=== PATIENT | female | born 1995 | race Caucasian/White ===

== ENCOUNTER 2021-01-11 10:58 | Outpatient (REF) | payer OTHER, SELFPAY ==
--- NOTE | 2021-01-11 11:04 | ECG_ITS ---
Test Reason : chest pain Blood Pressure : / mmHG Vent. Rate : 059 BPM Atrial Rate : 059 BPM P-R Int : 158 ms QRS Dur : 090 ms QT Int : 394 ms P-R-T Axes : 028 008 040 degrees QTc Int : 390 ms Sinus bradycardia with sinus arrhythmia Otherwise normal ECG No previous ECGs available Referred By: Anastasia Moreno Electronically Signed By:LUIS LYNN
[2021-01-11 12:17] LABS: Alanine Aminotransferase 7 U/L (0-31); Albumin Level 4.5 g/dL (3.5-5.0); Alkaline Phosphatase 75 U/L (39-117); Anion Gap 13 (12-20); Aspartate Amino Transferase 11 U/L (5-31); Bilirubin Total 0.6 mg/dL (0.0-1.0); Blood Urea Nitrogen 13 mg/dL (9-16); Calcium 9.7 mg/dL (8.4-10.2); Carbon Dioxide 26 mmol/L (22-29); Chloride 104 mmol/L (96-108); Cholesterol 173 mg/dL; Estimated Glomerular Filt Rate > 60; Glucose Fasting 86 mg/dL (60-99); HDL Cholesterol 49 mg/dL; LDL Cholesterol Calculated 104 mg/dl; Potassium 4.2 mmol/L (3.3-5.1); Sodium 139 mmol/L (135-145); Total Protein 7.1 g/dL (6.5-8.0); Triglycerides 102 mg/dL
[2021-01-15 11:47] LABS: Vitamin D 25-OH, D2 <4 ng/mL; Vitamin D 25-OH, D3 22 ng/mL; Vitamin D 25-OH, Total 22 ng/mL (30-100)
== END 2021-01-11 10:59 | disposition home or self-care (01) ==
LOC: HO.LAB 10:58
PROVIDERS: PCP Internal Medicine; Visit Provider Internal Medicine
DX: R07.9 Chest pain, unspecified (principal); E78.00 Pure hypercholesterolemia, unspecified; E78.5 Hyperlipidemia, unspecified; E55.9 Vitamin D deficiency, unspecified; G43.909 Migraine, unspecified, not intractable, without status migrainosus
CPT/HCPCS: 36415; 80053; 80061; 82306; 93005

== ENCOUNTER 2021-02-21 13:03 | Outpatient (REF) | payer OTHER, SELFPAY ==
[2021-02-22 02:12] LABS: CT PCR NOT DETECTED (Not Detect.); NG PCR NOT DETECTED (Not Detect.)
== END 2021-02-21 13:04 | disposition home or self-care (01) ==
LOC: HO.LAB 13:03
PROVIDERS: PCP Internal Medicine; Visit Provider Advanced Practice Midwife
DX: Z01.419 Encounter for gynecological examination (general) (routine) without abnormal findings (principal); Z11.8 Encounter for screening for other infectious and parasitic diseases; Z11.3 Encounter for screening for infections with a predominantly sexual mode of transmission; G44.209 Tension-type headache, unspecified, not intractable; J45.30 Mild persistent asthma, uncomplicated; E78.00 Pure hypercholesterolemia, unspecified; E55.9 Vitamin D deficiency, unspecified
CPT/HCPCS: 87491; 87591; 88142

== ENCOUNTER 2021-04-06 13:03 | Emergency (ER) | payer OTHER, SELFPAY ==
[2021-04-06 14:13] VITALS: BP 113/65; PULSE 80; RESP 18; TEMP 37; O2SAT 97; BMI 28.9
--- NOTE | 2021-04-06 16:27 | ED_ITS ---
HPI - URI/Sore Throat General Chief Complaint: Upper Respiratory Symptoms Stated Complaint: covid exposure Time Seen by Provider: 04/06/21 16:22 Source: patient Mode of arrival: ambulatory Limitations: no limitations History of Present Illness HPI Narrative: 26-year-old female with history of mild intermittent asthma, seasonal allergies presents to the ER with 2 days of mild dry cough and chest congestion. She has a known exposure to RSV. Her 1-month-old foster daughter is in the pediatric intensive care unit [facility] on high-flow oxygen with known RSV. The patient's grandmother also was diagnosed RSV yesterday. She denies any shortness of breath, dyspnea, chest pain. She describes her symptoms as mild she ?just needs to know she is positive for not. ? MD elicited complaint: cough and nasal congestion Onset (ago): day(s) (2) Consistency: intermittent Severity: mild Description of mucous: clear Able to tolerate fluids by mouth: Yes Exacerbating factors: nothing Relieving factors: nothing Context: sick contacts Associated symptoms: headache and nasal congestion Treatments prior to arrival: none Related Data Home Medications Medication Instructions Recorded Confirmed duloxetine 30 mg capsule,delayed 30 mg PO DAILY 02/21/21 release Previous Rx's Medication Instructions Recorded sumatriptan succinate 25 mg tablet 25 mg PO Q2-4H PRN 30 Days #9 tab 05/05/20 albuterol sulfate 90 mcg/actuation 2 inh INHALATION Q4-6H PRN 30 Days 05/21/20 breath activated powder inhaler #1 ea montelukast 10 mg tablet 10 mg PO BEDTIME 90 Days #90 tab 07/12/20 cholecalciferol (vitamin D3) 50 50 mcg PO DAILY #30 cap 07/19/20 mcg (2,000 unit) capsule meclizine 25 mg tablet 25 mg PO DAILY PRN 30 Days #30 tab 11/07/20 naproxen 500 mg tablet 500 mg PO BID 30 Days #60 tab 11/28/20 Allergies Allergy/AdvReac Type Severity Reaction Status Date / Time No Known Allergies Allergy Verified 02/21/21 14:00 Review of Systems Review of Systems: Constitutional: No Fever, No Chills ENT/Mouth: No sore throat, + Rhinorrhea, No Swallowing Difficulty Cardiovascular: No Chest Pain, No SOB Respiratory: +Cough, No Sputum, No Wheezing, No dyspnea Gastrointestinal: No Nausea, No Vomiting, No Diarrhea, No abdominal Pain Musculoskeletal: No joint pain, No Myalgias Skin: No Skin Lesions, No rash Neuro: No Weakness, No Dizziness, No Headache Psych: + Anxiety/Panic, No Depression Heme/Lymph: No Bruising, No Lymphadenopathy PMFSH Past Medical History Attestation statement: The following information was validated with the patient. Medical History Allergic rhinitis Hypovitaminosis D Incomplete immunization status Mild persistent asthma Pure hypercholesterolemia Tension headache Surgical History No pertinent past surgical history Family History Family History Father Medical history non-contributory Substance use disorder Mother Medical history non-contributory Maternal Grandmother No problems noted. Paternal Grandmother Diabetes Maternal Aunt Diabetes Brother In good health Brother In good health Sister In good health Sister In good health Sister In good health Family/Other FH: mental illness Paternal Uncle Substance use disorder Family/Other Breast cancer Social History Social History Housing: Apartment Alcohol intake: never Patient Tobacco Use Status: Never used Tobacco e-Cigarette/Vaping Use: Never Used Second Hand Smoke Exposure: No Advance Directives: No Advance Directives Information Provided: No Patient : No service: No Current occupational status: employed Gender identity: Female Physical Exam Vital Signs: Vital Signs: Last Vital Signs Temp 98.6 F 04/06/21 14:13 Pulse 80 04/06/21 14:13 Resp 18 04/06/21 14:13 BP 113/65 04/06/21 14:13 Pulse Ox 97 04/06/21 14:13 Body Mass Index 28.9 Appearance: Alert. Oriented X3. No acute distress. Eyes: Pupils equal, round and reactive to light. ENT: Pharynx normal. No tonsillar swelling or exudates. Neck: Normal inspection. Neck supple. CVS: Normal heart rate and rhythm. Pulses normal. Respiratory: No respiratory distress. Breath sounds normal. Skin: Skin warm and dry. Normal skin color. Normal skin turgor. No rashes. Extremities: Normal inspection, normal ROM Neuro: Oriented X 3.Grossly normal, nonfocal. Course Course Course Narrative: 26-year-old female with history of mild asthma presenting with mild URI symptoms in the setting of known RSV exposure. She is nontoxic appearing with normal vital signs. Her lungs are clear without wheezes. Her symptoms are mild. She was swabbed for COVID, flu, RSV. Will call with results. Symptomatic care was discussed and patient is stable for discharge home. She was counseled she is most likely positive for RSV and management was discussed. Critical Care Time Critical Care Time Critical Care Time: No Discharge Plan Discharge Clinical Impression: Viral infection Patient Disposition: Home, Self-Care Instructions: Viral Syndrome (ED) Additional Instructions: You most likely have RSV given your close exposure. We will call you with the results this evening. Rest and stay hydrated. Take over the counter cold and flu medications as needed for your symptpms. Prescriptions: No Action sumatriptan succinate 25 mg tablet 25 mg PO Q2-4H PRN (Reason: migraine headache) 30 Days Qty: 9 RF: 6 albuterol sulfate 90 mcg/actuation aerosol powdr breath activated 2 inh inhalation Q4-6H PRN (Reason: shortness of breath or wheezing) 30 Days Qty: 1 RF: 6 montelukast 10 mg tablet 10 mg PO BEDTIME 90 Days Qty: 90 RF: 3 cholecalciferol (vitamin D3) 50 mcg (2,000 unit) capsule 50 mcg PO DAILY Qty: 30 RF: 6 meclizine 25 mg tablet 25 mg PO DAILY PRN (Reason: dizziness) 30 Days Qty: 30 RF: 6 naproxen 500 mg tablet 500 mg PO BID 30 Days Qty: 60 RF: 2 duloxetine 30 mg capsule,delayed release(DR/EC) 30 mg PO DAILY RF: 0
--- NOTE | 2021-04-06 16:39 | PC.NURSE ---
PT PLACED IN FAMILY ROOM FROM WAITING ROOM. EVALUATED BY ROSSY ZAMARRIPA. PT AWAKE, ALERT AND ORIENTED X 3. SKIN WARM AND DRY. RESP UNLABORED. DENIES N/V. NO C/O PAIN. NO ACUTE DISTRESS NOTED. PLAN IS FOR PA TO CALL PATIENT WITH RESULTS AND FOR PT TO BE DISCHARGED HOME. PT AGREEABLE TO PLAN. STATES NO QUESTIONS.
[2021-04-06 17:00] LABS: Influenza A PCR NEGATIVE (Negative); Influenza B PCR NEGATIVE (Negative); Resp Syncy Virus RNA Qual PCR NEGATIVE (Negative); SARS COV2 PCR INHOUSE NEGATIVE (Negative)
== END 2021-04-06 16:42 | disposition home or self-care (01) ==
PROVIDERS: Emergency Provider Internal Medicine; PCP Internal Medicine
DX: B34.9 Viral infection, unspecified (principal); Z20.822 Contact with and (suspected) exposure to COVID-19; R05.9 Cough, unspecified; F41.9 Anxiety disorder, unspecified; J45.909 Unspecified asthma, uncomplicated
CPT/HCPCS: 0241U; 36415; 99283

== ENCOUNTER 2022-02-25 14:06 | Outpatient (REF) | payer OTHER, SELFPAY ==
[2022-02-26 12:16] LABS: BV Int Neg Control Negative (Negative); BV Int Pos Control Positive (Positive)
== END 2022-02-25 14:07 | disposition home or self-care (01) ==
LOC: HO.LNP 14:06
PROVIDERS: Visit Provider Advanced Practice Midwife
DX: N76.0 Acute vaginitis (principal)
CPT/HCPCS: 87480; 87510; 87660

== ENCOUNTER → 2022-03-25 09:23 | Outpatient (BNVA) | payer OTHER, SELFPAY | PROVIDERS: PCP Internal Medicine; Visit Provider Advanced Practice Midwife | DX: Z30.011 Encounter for initial prescription of contraceptive pills (principal) | CPT/HCPCS: 99212 ==

== ENCOUNTER 2022-08-12 08:17 | Outpatient (REF) | payer OTHER, SELFPAY ==
--- NOTE | 2022-08-12 08:23 | ECG_ITS ---
Test Reason : chest pain Blood Pressure : / mmHG Vent. Rate : 067 BPM Atrial Rate : 067 BPM P-R Int : 154 ms QRS Dur : 086 ms QT Int : 378 ms P-R-T Axes : -08 -01 021 degrees QTc Int : 399 ms Normal sinus rhythm with sinus arrhythmia Normal ECG When compared with ECG of 11-JAN-2021 11:10, No significant change was found Referred By: Anastasia Moreno Electronically Signed By:Savage Contreras
[2022-08-12 09:51] LABS: Alanine Aminotransferase 16 U/L (0-31); Albumin Level 4.2 g/dL (3.5-5.0); Alkaline Phosphatase 64 U/L (39-117); Anion Gap 12 (12-20); Aspartate Amino Transferase 18 U/L (5-31); Bilirubin Total 0.5 mg/dL (0.0-1.0); Blood Urea Nitrogen 11 mg/dL (9-16); Calcium 9.1 mg/dL (8.4-10.2); Carbon Dioxide 25 mmol/L (22-29); Chloride 103 mmol/L (96-108); Cholesterol 181 mg/dL; Estimated Glomerular Filt Rate > 60; Glucose Fasting 82 mg/dL (60-99); HDL Cholesterol 51 mg/dL; LDL Cholesterol Calculated 103 mg/dl; Potassium 4.1 mmol/L (3.3-5.1); Sodium 136 mmol/L (135-145); Total Protein 6.7 g/dL (6.5-8.0); Triglycerides 138 mg/dL
[2022-08-12 10:12] LABS: Vitamin D 25-OH Total 11.1 ng/mL (>30)
== END 2022-08-12 08:18 | disposition home or self-care (01) ==
LOC: HO.LAB 08:17
PROVIDERS: PCP Internal Medicine; Visit Provider Internal Medicine
DX: Z00.00 Encounter for general adult medical examination without abnormal findings (principal); R07.9 Chest pain, unspecified; E55.9 Vitamin D deficiency, unspecified
CPT/HCPCS: 36415; 80053; 80061; 82306; 93005

== ENCOUNTER 2023-05-08 13:54 | Outpatient (AMB) | payer OTHER, SELFPAY ==
[2023-05-08 13:57] VITALS: BP 100/60; BMI 33.2
--- NOTE | 2023-05-08 13:57 | MHC.OFFVIS ---
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 Doing well with no concerns. She tries to eat healthy and stays active with exercise. Regular monthly menses. Currently is not sexually active. She denies vaginal itching and irritation. STI screening offered; she declines. Denies family history of ovarian or colon cancer. Remote relative with breast cancer. Last pap smear 2020, negative. [facility] Medical History Incomplete immunization status Tension headache Allergic rhinitis Hypovitaminosis D Mild persistent asthma Pure hypercholesterolemia Surgical History No pertinent past surgical history Family History Father Substance use disorder Diabetes Mother Gout Maternal Grandmother No problems noted. Paternal Grandmother Diabetes Maternal Aunt Diabetes Brother In good health Brother In good health Sister In good health Sister In good health Sister In good health Family/Other FH: mental illness Paternal Uncle Substance use disorder Family/Other Breast cancer Social History Housing: Apartment Alcohol intake: never Patient Tobacco Use Status: Never used Tobacco e-Cigarette/Vaping Use: Never Used Second Hand Smoke Exposure: No service: No Current occupational status: unemployed Gender identity: Female Cognitive needs: No Hearing needs: No Vision needs: No Female Reproductive History Menstrual Age of Menarche: 12 Duration of menses: 6-7 days Date of last menstrual period: 04/28/23 control method: none Total pregnancies: 0 Date of last pap smear: 02/21/21 (neg) Review of Systems Const All systems reviewed & are unremarkable except as noted in HPI and below Reports as per HPI Eyes Reports no additional complaints ENT Reports no additional complaints Card Reports no additional complaints Resp Reports no additional complaints GI Reports as per HPI and Reports no additional complaints Reports as per HPI Musc Reports no additional complaints Skin/Breast Reports as per HPI Neuro Reports no additional complaints Psych Reports no additional complaints Endo Reports no additional complaints Artur/Lymph Reports no additional complaints Aller/Immun Reports no additional complaints Physical Exam Vital Signs: Last Vital Signs BP 100/60 05/08/23 13:57 BMI result Body Mass Index 33.2 Const General: cooperative, healthy appearing, no acute distress, well developed and alert Orientation/consciousness: patient oriented x3 HEENT Head: Yes normal to inspection Eyes General: appearance normal, both eyes and all related structures Neck Neck: Yes normal visual inspection Thyroid: Thyroid normal Chest Chest palpation & inspection: normal inspection of the chest and other (no puckering, dimpling, peau de orange, retraction, discharge, masses) Breast/axilla inspection: normal inspection of the breasts Breast/axilla palpation: normal palpation of the breasts Resp Effort & Inspection: normal respiratory effort GI Inspection: Yes normal to inspection Palpation (GI): Soft to palpation Rectal Exam - Female: deferred General: Yes bladder normal to palpation External Female Exam: normal external appearance and normal appearance of the urethra Speculum Exam - Vagina: normal appearance of the vagina, normal palpation and normal vaginal discharge Speculum Exam - Cervix: normal appearance of the cervix and normal palpation Bimanual exam- vagina & uterus: normal bimanual exam, normal palpation, uterine size normal, bladder normal to palpation, normal palpation and non-tender Bimanual Exam- Adnexa, other: no masses Skin General skin exam: no rashes or lesions noted Rashes: no rashes Neuro General: patient oriented x3 Cognition (Neuro): normal cognition Extrem General: Yes normal to inspection Psych Attitude: cooperative Thought process: Normal thought process present Assessment & Plan Assessment & Plan (1) Encounter for well woman exam with routine gynecological exam: Code(s): Z01.419 - Encounter for gynecological examination (general) (routine) without abnormal findings Plan Discussed: Current recommendations for pap smears per ASCCP guidelines. Breast awareness and periodic breast exams. Maintain a healthy lifestyle including a well balanced diet and routine exercise. Use condoms for STI and prevention. All of her questions and concerns were addressed to the best of my ability. RTO in one year for annual self pay representative examination. This note is constructed using voice recognition software. While every effort has been made to ensure accuracy, field care coordinator errors may have been included. Coding Level of Care Code Est Pt Prev Care 18-39y(66627) Diagnoses Encounter for well woman exam with routine gynecological exam Z01.419
== END 2023-05-08 14:37 | disposition home or self-care (01) ==
LOC: HO.HWS 13:54
PROVIDERS: PCP Internal Medicine; Visit Provider Advanced Practice Midwife
DX: Z01.419 Encounter for gynecological examination (general) (routine) without abnormal findings (principal)
CPT/HCPCS: 99395

== ENCOUNTER → 2023-05-08 13:54 | Outpatient (BNVA) | payer OTHER, SELFPAY | PROVIDERS: PCP Internal Medicine; Visit Provider Advanced Practice Midwife | DX: Z01.419 Encounter for gynecological examination (general) (routine) without abnormal findings (principal) | CPT/HCPCS: 99395 ==

== ENCOUNTER 2023-08-06 12:31 | Outpatient (AMB) | payer OTHER, SELFPAY ==
--- NOTE | 2023-08-06 12:42 | MHC.PC.OV ---
Vital Signs 08/06/23 12:43 Height 5 ft Weight 164 lb BMI 32.0 BP 102/70 Blood Pressure Location Lt brachial Position Sitting Intake Visit Reasons: PE Intake Note: Patient here for a physical exam Nuclear Spectroscopist Required: No Accompanied by: Self / Same As Patient Allergies No Known Allergies Allergy (Verified 08/06/23 12:57) Medication List - Last Reconciled 08/06/23 by Anastasia Moreno MD clonidine HCl 0.1 mg PO BEDTIME Ventolin HFA 90 mcg/actuation (albuterol sulfate) 2 puffs inhalation Q6H PRN 30 days NS Tobacco use date assessed: 08/06/23 Dental Screening Dental Screen Date: 08/06/23 Did you have a dental visit in the last 12 months?: No Did you have a dental problem in the last 6 months where you did not have access to dental care?: No Was dental information given to patient?: Patient has dentist HPI HPI Comments History of Present Illness Details This is a 28-year-old female that comes for her physical exam. Last Pap smear was 2020 and was normal. No chest pain. Requires rescue inhaler few times a week for the past few months and I will add a long-acting inhaler due to this matter. [facility] Medical History (Updated 08/06/23 @ 13:07 by Anastasia Moreno MD) Mild major depression Incomplete immunization status Tension headache Allergic rhinitis Hypovitaminosis D Mild persistent asthma Pure hypercholesterolemia Surgical History No pertinent past surgical history Family History Father Substance use disorder Diabetes Mother Gout Maternal Grandmother No problems noted. Paternal Grandmother Diabetes Maternal Aunt Diabetes Brother In good health Brother In good health Sister In good health Sister In good health Sister In good health Family/Other FH: mental illness Paternal Uncle Substance use disorder Family/Other Breast cancer Social History Housing: Apartment Alcohol intake: never Patient Tobacco Use Status: Never used Tobacco e-Cigarette/Vaping Use: Never Used Second Hand Smoke Exposure: No service: No Current occupational status: unemployed Gender identity: Female Cognitive needs: No Hearing needs: No Vision needs: No Female Reproductive History Menstrual Age of Menarche: 12 Questionnaire PHQ-9 Over the last 2 weeks, how often have you been bothered by any of the following problems? 1. Little interest or pleasure in doing things: not at all 2. Feeling down, depressed, or hopeless: not at all 3. Trouble falling or staying asleep, or sleeping too much: not at all 4. Feeling tired or having little energy: not at all 5. Poor appetite or overeating: not at all 6. Feeling bad about yourself - or that you are a failure or have let yourself or your family down: not at all 7. Trouble concentrating on things, such as reading the newspaper or watching television: not at all 8. Moving or speaking so slowly that other people could have noticed. Or the opposite - being so fidgety or restless that you have been moving around a lot more than usual: not at all 9. Thoughts that you would be better off or of hurting yourself in some way: not at all Total score: 0 Depression Screening Interpretation: Negative Depression Screening Done: Yes 94066 - PHQ-9 Billing: Yes Source: Developed by Drs. Joshua Ceballos, Macarena Hightower, Matt Nunez and colleagues, with an educational maya from [employer]. Thrive Questionnaire Date Thrive assessed: 08/06/23 I am a: Patient What is your living situation today?: I have a steady place to live Within the past 12 months, did the food you bought not last and you didn't have the money to get more?: Never true Within the past 12 months, did you worry whether your food would run out before you got money to buy more?: Never true Do you have trouble paying for medicines?: No Do you have trouble getting transportation to medical appointments?: No Do you have trouble paying your heating and electricity bill?: No Do you have trouble taking care of your child, family member or friend?: No Do you have trouble with day-to-day activities such as bathing, preparing meals, shopping, managing finances, etc.?: No Are you currently unemployed and looking for a job?: No Are you interested in more education?: No Please select the resources that you would like help with: None Currently or been in a relationship where the following occur: no concerns reported THRIVE Score: 0 AUDIT C Alcohol Use Questionnaire (AUDIT-C) 1. How often do you have a drink containing alcohol?: Never Total Score: 0 Score Reviewed/Action Taken: No JENNIFER-7 AMB Questionnaire JENNIFER-7 Date JENNIFER - 7 assessed: 08/06/23 Feeling nervous, anxious, or on edge: 2 = More than half the days Not being able to stop or control worryin = Not at all Worrying too much about different things: 1 = Several days Trouble relaxin = Several days Being so restless that it is hard to sit still: 1 = Several days Becoming easily annoyed or irritable: 0 = Not at all Feeling afraid as if something awful might happen: 0 = Not at all Total JENNIFER-7 score (0-4 normal; 5-9 mild; 10-14 moderate; 15-21 severe): 5 Source: Developed by Drs. Joshua Ceballos, Macarena Hightower, Matt Nunez and colleagues, with an educational maya from [employer]. JENNIFER-7 Assessment Billing EJNNIFER-7 Assessment Tool: JENNIFER-7 Assessment 25816 Review of Systems Const All systems reviewed & are unremarkable except as noted in HPI and below Eyes Reports no additional complaints, Denies change in vision and Denies other visual disturbances Card Denies chest pain at rest, Denies chest pain with activity, Denies edema, Denies irregular heart rhythm, Denies claudication, Denies dyspnea, Denies dyspnea on exertion, Denies orthopnea, Denies paroxysmal nocturnal dyspnea and Denies slow heart rate Resp Denies cough, Denies dyspnea and Denies dyspnea on exertion GI Denies abdominal pain, Denies change in bowel habits, Denies excessive flatus, Denies nausea and Denies vomiting Denies urinary incontinence, Denies urinary hesitancy and Denies urinary urgency Neuro Denies behavioral changes and Denies confusion Psych Denies behavioral changes and Denies confusion Physical exam (Primary Care) Vital Signs: Last Vital Signs BP 102/70 08/06/23 12:43 BMI result Body Mass Index 32.0 Tobacco/Smoking Status: Tobacco use Status Tobacco use date assessed 08/06/23 08/06/23 12:50 Patient Tobacco Use Status Never used Tobacco 08/06/23 12:44 e-Cigarette/Vaping Use Never Used 08/06/23 12:44 PHQ-9: PHQ-9 Score PHQ-9: Total score 0 08/06/23 13:02 Depression Screening Interpretation: Negative Thrive Assessment: Date of Thrive Assessment Date Thrive assessed 08/06/23 08/06/23 12:50 Currently or been in a relationship where the following occur: no concerns reported Const General: No confusion Orientation/consciousness: patient oriented x3 and No confusion HENMT Head: Yes normal to inspection, Yes normocephalic and Yes atraumatic Ears: external ears normal Eyes General: appearance normal, both eyes and all related structures Eyelids: Yes eyelids normal Conjunctivae: conjunctivae normal Neck Neck: Yes normal visual inspection and Yes supple Resp Effort & Inspection: normal respiratory effort Auscultation: clear to auscultation bilaterally Cardio Jugular venous distension: no JVD Rate: regular rate Rhythm: regular rhythm Heart sounds: S1 normal heart sound present and S2 normal heart sound present GI Inspection: Yes normal to inspection Palpation (GI): Soft to palpation and nontender Auscultation: normal bowel sounds Skin General skin exam: no rashes or lesions noted Neuro General: patient oriented x3, no focal motor deficits and No confusion Extrem General: Yes full ROM Psych Appearance: grossly normal Assessment and Plan Assessment & Plan (1) Physical exam: Code(s): Z00.00 - Encounter for general adult medical examination without abnormal findings Plan: Repeat in a year. Orders: Orders Lipid Panel Today Z00.00 - Encounter for general adult medical examination without abnormal findings XR knee RT 2V Today M25.561 - Pain in right knee Comprehensive [place]. Panel Fast Today Z00.00 - Encounter for general adult medical examination without abnormal findings Medications: New budesonide-formoterol 80-4.5 mcg/actuation 1 inh inhalation BID 10.2 grams 2RF 30 days J45.40 - Moderate persistent asthma, uncomplicated Coding Level of Care Code Est Pt Prev Care 18-39y(32072) Diagnoses Physical exam Z00.00 Additional Codes JENNIFER-7 Assessment Billing - JENNIFER-7 Assessment Tool: JENNIFER-7 Assessment [id number] ([id number]) Time Spent (min) 31
[2023-08-06 12:43] VITALS: BP 102/70; BMI 32.0
== END 2023-08-06 13:09 | disposition home or self-care (01) ==
PROVIDERS: Visit Provider Internal Medicine
DX: Z00.00 Encounter for general adult medical examination without abnormal findings (principal)
CPT/HCPCS: 99395

== ENCOUNTER 2023-08-14 11:56 | Outpatient (REF) | payer OTHER, SELFPAY ==
--- NOTE | ~2023-08-14 | XR_ITS ---
EXAMINATION: XR KNEE, RIGHT CLINICAL INFORMATION: Pain. COMPARISON: Right lower leg radiographs dated 01/27/2013. TECHNIQUE: AP and lateral views of the right knee. FINDINGS: Bony alignment and mineralization are normal. The lateral, medial and patellofemoral joint space compartments are well-maintained. There is a very small joint effusion. No foreign body is seen. XR/XR knee RT 2V IMPRESSION: 1. No right knee fracture, dislocation or unusual degenerative change is seen. 2. There is a very small right knee joint effusion.
[2023-08-14 13:25] LABS: Alanine Aminotransferase 10 U/L (0-31); Albumin Level 4.4 g/dL (3.5-5.0); Alkaline Phosphatase 76 U/L (39-117); Anion Gap 9 (12-20); Aspartate Amino Transferase 13 U/L (5-31); Bilirubin Total 0.4 mg/dL (0.0-1.0); Blood Urea Nitrogen 12 mg/dL (9-16); Calcium 9.7 mg/dL (8.4-10.2); Carbon Dioxide 27 mmol/L (22-29); Chloride 108 mmol/L (96-108); Cholesterol 180 mg/dL (<200); Estimated Glomerular Filt Rate > 60; Glucose Fasting 89 mg/dL (60-99); HDL Cholesterol 48 mg/dL (>40); LDL Cholesterol Calculated 105 mg/dL (<100); Potassium 4.2 mmol/L (3.3-5.1); Sodium 140 mmol/L (135-145); Total Protein 7.7 g/dL (6.5-8.0); Triglycerides 138 mg/dL (<150)
[2023-08-15 08:00] LABS: HBS Num1 0.86 mIU/mL (0-7.99); HBc Num1 0.07 S/CO (0.00-0.79); HBsAGNum1 0.27 S/CO (0.00-0.99); Hepatitis B Core Antibody Nonreactive (Nonreactive); Hepatitis B Surface Antigen Negative (Negative); ~Hepatitis B Surface Antibody NONREACTIVE (Nonreactive)
[2023-08-15 08:57] LABS: Rubeola IgG (Measles) >300.00 AU/mL
[2023-08-15 13:03] LABS: Rubella IgG Antibody 7.68 Index
== END 2023-08-14 11:57 | disposition home or self-care (01) ==
LOC: HO.LAB 11:56
PROVIDERS: PCP Internal Medicine; Visit Provider Internal Medicine
DX: M25.561 Pain in right knee (principal); Z00.00 Encounter for general adult medical examination without abnormal findings
CPT/HCPCS: 36415; 73560; 80053; 80061; 86704; 86706; 86735; 86762; 86765; 86787; 87340

== ENCOUNTER 2023-11-10 08:55 | Outpatient (REF) | payer OTHER, SELFPAY ==
[2023-11-10 10:27] LABS: HBS Num1 0.99 mIU/mL (0-7.99); HBc Num1 0.07 S/CO (0.00-0.79); HBsAGNum1 0.27 S/CO (0.00-0.99); Hepatitis B Core Antibody Nonreactive (Nonreactive); Hepatitis B Surface Antigen Negative (Negative); ~Hepatitis B Surface Antibody NONREACTIVE (Nonreactive)
[2023-11-11 17:57] LABS: Rubella IgG Antibody 7.47 Index
[2023-11-11 22:14] LABS: Rubeola IgG (Measles) >300.00 AU/mL
[2023-11-12 19:23] LABS: TS Negative Control Passed; TS Panel A 2; TS Panel B 0; TS Positive Control Passed; TSpotTB Negative (Negative)
== END 2023-11-10 08:56 | disposition home or self-care (01) ==
LOC: HO.LAB 08:55
PROVIDERS: PCP Internal Medicine; Visit Provider Internal Medicine
DX: Z11.1 Encounter for screening for respiratory tuberculosis (principal); Z28.39 Other underimmunization status
CPT/HCPCS: 36415; 86481; 86704; 86706; 86735; 86762; 86765; 87340

== ENCOUNTER 2023-11-23 23:44 | Emergency (ER) | payer OTHER, SELFPAY ==
[2023-11-23 23:55] VITALS: BP 111/61; PULSE 64; RESP 19; TEMP 37.1; O2SAT 97; BMI 33.0
[2023-11-24 00:47] LABS: IDNOW Serial# 08D9AD1C; Strep A Nucleic Acid Negative (Negative)
[2023-11-24 01:08] LABS: Influenza A PCR NEGATIVE (Negative); Influenza B PCR NEGATIVE (Negative); Resp Syncy Virus RNA Qual PCR NEGATIVE (Negative); SARS COV2 PCR INHOUSE NEGATIVE (Negative)
--- NOTE | 2023-11-24 01:41 | ED_ITS ---
HPI - URI/Sore Throat General Chief Complaint: Upper Respiratory Symptoms Stated Complaint: sore throat, ear pain, cough Time Seen by Provider: 11/24/23 01:36 Source: patient Mode of arrival: ambulatory Limitations: no limitations History of Present Illness ED Provider: Dr. Pauly Elam HPI Narrative: Patient comes to the emergency room complaining of right-sided earache, cough, sore throat for 3 days. Patient denies fever chills. Patient denies any recent swimming. Related Data Home Medications ?Medication ?Instructions ?Recorded ?Confirmed clonidine HCl 0.1 mg tablet 0.1 mg PO BEDTIME 08/06/23 08/06/23 Previous Rx's ?Medication ?Instructions ?Recorded budesonide-formoterol HFA 80 1 inh inhalation BID 30 days #10.2 08/06/23 mcg-4.5 mcg/actuation aerosol grams inhaler Ventolin HFA 90 mcg/actuation 2 puff inhalation Q6H PRN 09/14/23 aerosol inhaler (albuterol sulfate) shortness of breath or wheezing 30 days #18 grams amoxicillin 500 mg-potassium 1 tab PO TID 10 days #30 tabs 11/24/23 clavulanate 125 mg tablet (Augmentin) ibuprofen 600 mg tablet 600 mg PO Q8H PRN fever or pain 11/24/23 #20 tabs Allergies Allergy/AdvReac Type Severity Reaction Status Date / Time No Known Allergies Allergy Verified 11/23/23 23:58 Review of Systems Review of Systems: Constitutional : No Weight loss, No Fever, No Chills, No Night Sweats, No Fa tigue, No Malaise ENT/Mouth : No Hearing loss, complaining of right-sided Ear Pain, No Nasal Congestion, No Sinus Pain, No Hoarseness, complaining of sore throat, No Rhinorrhea, No Swallowing Difficulty Eyes: No Eye Pain, No Swelling, No Redness, No Foreign Body, No Discharge, No Vision Changes Cardiovascular : No Chest Pain, No SOB, No Dyspnea on Exertion, No Orthopnea, No Edema, No Palpitations Respiratory : No Cough, No Sputum, No Wheezing, No Smoke Exposure, No Dyspnea Gastrointestinal : No Nausea, No Vomiting, No Diarrhea, No Constipation, No abdominal Pain, No Hematochezia, No Melena Genitourinary : no irregular bleeding, No Dysuria, No Urinary Frequency, No Hematuria, No Urinary Incontinence, No Urgency, No Flank Pain, No Urinary Flow Changes, No Hesitancy Musculoskeletal : No joint pain, No Myalgias, No Joint Swelling Skin : No Skin Lesions, No rash Neuro : No Weakness, No Numbness, No Paresthesias, No Loss of Consciousness, No Dizziness, No Headache Psych : No Anxiety/Panic, No Depression, No SI/HI/AH/VH, No Social Issues, Heme/Lymph: No Bruising, No Bleeding,No Lymphadenopathy Endocrine : No Polyuria, No Polydipsia, No Temperature Intolerance [facility] Past Medical History Medical History Mild major depression Incomplete immunization status Tension headache Allergic rhinitis Hypovitaminosis D Mild persistent asthma Pure hypercholesterolemia Surgical History No pertinent past surgical history Family History Family History Father Substance use disorder Diabetes Mother Gout Maternal Grandmother No problems noted. Paternal Grandmother Diabetes Maternal Aunt Diabetes Brother In good health Brother In good health Sister In good health Sister In good health Sister In good health Family/Other FH: mental illness Paternal Uncle Substance use disorder Family/Other Breast cancer Social History Social History Housing: Apartment Alcohol intake: never Patient Tobacco Use Status: Never used Tobacco e-Cigarette/Vaping Use: Never Used Second Hand Smoke Exposure: No Advance Directives: No Advance Directives Information Provided: No Do you have a plan to hurt others: No Plan service: No Current occupational status: unemployed Gender identity: Female Cognitive needs: No Hearing needs: No Vision needs: No Physical Exam Vital Signs: Vital Signs: Last Vital Signs Temp 98.7 F 11/23/23 23:55 Pulse 64 11/23/23 23:55 Resp 19 11/23/23 23:55 BP 111/61 11/23/23 23:55 Pulse Ox 97 11/23/23 23:55 O2 Del Method Room Air 11/23/23 23:55 BMI result Body Mass Index 33.0 Const: Other: Appearance: Alert. Oriented X3. No acute distress. Eyes: Pupils equal, round and reactive to light. ENT: Pharynx erythematous, no vesicles or abscesses visualized. Right tympanic membrane is erythematous, ear canal is erythematous as well. Left ear canal and tympanic membrane within normal limits. Erythematous oropharynx. No mastoid bone tenderness bilaterally Neck: Normal inspection. Neck supple. No lymph nodes noted. No crepitus CVS: Normal heart rate and rhythm. Pulses normal. Normal S1 and S2 Respiratory: No respiratory distress. Breath sounds normal. No Wheezing. No rales Abdomen: Soft and nontender. No rigidity. No distention. Skin: Skin warm and dry. Normal skin color. Normal skin turgor. Extremities: No lower extremity edema. No Lacerations. No Rash Neuro: Oriented X 3. No motor deficit. No sensory deficit. Moving all extremities. No slurred speech. CN 2 through 12 grossly intact Psych: calm, cooperative, normal affect Medical Decision Making Medical Decision Making [facility] Narrative: My interpretation of labs: Patient tested negative for COVID RSV and strep -patient does have otitis media in the right ear. First dose of antibiotics, Augmentin given in the ED. Lab Data [facility] Lab Attestation statement: I reviewed the patient's lab results. Labs: Lab Results 11/24/23 Range/Units 00:01 Influenza Type A (PCR) NEGATIVE (Negative) Influenza Type B (PCR) NEGATIVE (Negative) RSV RNA Qual (PCR) NEGATIVE (Negative) SARS-CoV-2 RNA (RT-PCR) NEGATIVE (Negative) S. pyogenes GrpA ISAIAH Negative (Negative) Discharge Plan Discharge Clinical Impression: Otitis media, Acute viral pharyngitis Patient Disposition: Home, Self-Care Instructions: Pharyngitis (ED), Ear Infection (ED) Additional Instructions: Please follow-up with your primary care physician tomorrow. If you have any worsening or new symptoms, please return to the emergency room or call 911 Prescriptions: New amoxicillin-pot clavulanate [Augmentin] 500-125 mg tablet 1 tab PO TID 10 Days Qty: 30 0RF Rx Instructions: Please make sure to complete entire course of antibiotics ibuprofen 600 mg tablet 600 mg PO Q8H PRN (Reason: fever or pain) Qty: 20 0RF No Action albuterol sulfate [Ventolin HFA] 90 mcg/actuation HFA aerosol inhaler 2 puff inhalation Q6H PRN (Reason: shortness of breath or wheezing) 30 Days Qty: 18 1RF clonidine HCl 0.1 mg tablet 0.1 mg PO BEDTIME budesonide-formoterol 80-4.5 mcg/actuation HFA aerosol inhaler 1 inh inhalation BID 30 Days Qty: 10.2 2RF Print Language: Upper Sorbian
[2023-11-24] MEDS: Ibuprofen 600 MG TABLET PO (01:59)
[2023-11-24] MEDS: Amoxicillin/Potassium Clav 500 MG TABLET PO (02:00)
[2023-11-24 02:02] VITALS: BP 111/61; PULSE 64; RESP 19; TEMP 37.1; O2SAT 97
== END 2023-11-24 02:03 | disposition home or self-care (01) ==
PROVIDERS: Emergency Provider Emergency Medicine; PCP Internal Medicine
DX: J02.9 Acute pharyngitis, unspecified (principal); H66.91 Otitis media, unspecified, right ear; H92.01 Otalgia, right ear; R05.9 Cough, unspecified; Z03.818 Encounter for observation for suspected exposure to other biological agents ruled out
CPT/HCPCS: 0241U; 87651; 99283

== ENCOUNTER 2023-12-11 14:55 | Outpatient (AMB) | payer OTHER, SELFPAY ==
--- NOTE | 2023-12-11 15:13 | A.OFFPC_ITS ---
Vital Signs 12/11/23 15:15 Height 5 ft Weight 162 lb BMI 31.6 BP 110/76 Blood Pressure Location Lt brachial Position Sitting Intake Visit Reasons: Ear pain, cough Intake Note: Patient here for cough Desk Assistant Required: No Accompanied by: Self / Same As Patient Allergies No Known Allergies Allergy (Verified 12/11/23 15:29) Medication List - Last Reconciled 12/11/23 by Anastasia Moreno MD budesonide-formoterol 80-4.5 mcg/actuation 1 inh inhalation BID 30 days ibuprofen 600 mg PO Q8H PRN meclizine 25 mg PO DAILY PRN Ventolin HFA 90 mcg/actuation (albuterol sulfate) 2 puffs inhalation Q6H PRN 30 days NS Tobacco use date assessed: 08/06/23 Dental Screening Dental Screen Date: 08/06/23 HPI HPI Comments History of Present Illness Details This is a 28-year-old female with moderate persistent asthma that comes today complaining of cough and chest congestion that started about a week ago. She completed a course of Augmentin with no significant relief. She use rescue inhaler few times a month. Denies any fever. I will give her prednisone and another antibiotic. [facility] Medical History (Updated 12/12/23 @ 07:30 by Anastasia Moreno MD) Incomplete immunization status Tension headache Allergic rhinitis Hypovitaminosis D Mild persistent asthma Pure hypercholesterolemia Surgical History No pertinent past surgical history Family History Father Substance use disorder Diabetes Mother Gout Maternal Grandmother No problems noted. Paternal Grandmother Diabetes Maternal Aunt Diabetes Brother In good health Brother In good health Sister In good health Sister In good health Sister In good health Family/Other FH: mental illness Paternal Uncle Substance use disorder Family/Other Breast cancer Social History Housing: Apartment Alcohol intake: never Patient Tobacco Use Status: Never used Tobacco e-Cigarette/Vaping Use: Never Used Second Hand Smoke Exposure: No service: No Current occupational status: unemployed Gender identity: Female Cognitive needs: No Hearing needs: No Vision needs: No Female Reproductive History Menstrual Age of Menarche: 12 Questionnaire Thrive Questionnaire Date Thrive assessed: 08/06/23 JENNIFER-7 AMB Questionnaire JENNIFER-7 Date JENNIFER - 7 assessed: 08/06/23 Source: Developed by Drs. Joshua Ceballos, Macarena Hightower, Matt Nunez and colleagues, with an educational maya from [employer]. Review of Systems Const All systems reviewed & are unremarkable except as noted in HPI and below Card Denies chest pain at rest, Denies chest pain with activity, Denies edema, Denies irregular heart rhythm, Denies claudication, Denies dyspnea, Denies dyspnea on exertion, Denies orthopnea, Denies paroxysmal nocturnal dyspnea and Denies slow heart rate Resp Reports chest congestion, Reports cough, Denies dyspnea and Denies dyspnea on exertion GI Denies abdominal pain, Denies change in bowel habits, Denies excessive flatus, Denies nausea and Denies vomiting Denies urinary incontinence, Denies urinary hesitancy and Denies urinary urgency Physical exam (Primary Care) Vital Signs: Last Vital Signs BP 110/76 12/11/23 15:15 BMI result Body Mass Index 31.6 Tobacco/Smoking Status: Tobacco use Status Tobacco use date assessed 08/06/23 12/11/23 15:14 Patient Tobacco Use Status Never used Tobacco 12/11/23 15:14 e-Cigarette/Vaping Use Never Used 12/11/23 15:14 Thrive Assessment: Date of Thrive Assessment Date Thrive assessed 08/06/23 12/11/23 15:14 Resp Effort & Inspection: normal respiratory effort Auscultation: clear to auscultation bilaterally Cardio Jugular venous distension: no JVD Rate: regular rate Rhythm: regular rhythm Heart sounds: S1 normal heart sound present and S2 normal heart sound present Extrem General: Yes full ROM Immunizations Boostrix Tdap 2.5 Lf unit-8 mcg-5 Lf/0.5 mL intramuscular syringe Performing Provider: Anastasia Moreno MD [facility] Administered by: GREGORIA Russell on 12/11/23 15:42 Dose Route Admin Location Dispensed Lot Number Expiration Date NDC Embossed Or Impressed Lettering Painter 0.5 mL IM Left Deltoid 0.5 mL [id number] 12/26/25 36448-645-09 Dragonfly VIS Given Date VIS Provided VIS Publication Date 12/11/23 Single Vaccine 21 Eligibility Eligibility Date Funding Source Not [facility] Eligible 12/11/23 Private Assessment and Plan Assessment & Plan (1) URI (upper respiratory infection): Code(s): J06.9 - Acute upper respiratory infection, unspecified Plan: Start Z-Yoshi. Start prednisone. (2) Moderate persistent asthma: Code(s): J45.40 - Moderate persistent asthma, uncomplicated Plan: Use rescue inhaler as needed. Orders: Orders TDaP Immunization 12/11/23 Z23 - Encounter for immunization Medications: New benzonatate 100 mg PO BID PRN 10 caps 0RF cough 5 days azithromycin Take 2 tabs the first day, then 1 tab the next 4 days 250 mg PO DAILY 6 tabs 0RF 5 days prednisone Take 4 tabs for 2 days, then 3 tabs for 2 days, then 2 tabs for 2 days, then 1 tab for 2 days 10 mg PO DIRECTED 20 tabs 0RF 8 days Coding Level of Care Code Est Pt Level 3 (37262) Complex EM visit Add On G2211 Diagnoses URI (upper respiratory infection) J06.9 Moderate persistent asthma J45.40 Time Spent (min) 19
[2023-12-11 15:15] VITALS: BP 110/76; BMI 31.6
== END 2023-12-11 15:40 | disposition home or self-care (01) ==
PROVIDERS: PCP Internal Medicine; Visit Provider Internal Medicine
DX: Z23 Encounter for immunization (principal)
CPT/HCPCS: 90471; 90715; 99213; G2211

== ENCOUNTER 2024-08-26 15:06 | Emergency (ER) | payer OTHER, SELFPAY ==
--- NOTE | ~2024-08-26 | XR_ITS ---
EXAMINATION: XR CHEST CLINICAL INFORMATION: cough 8 days COMPARISON: Chest x-ray 04/05/2009 report. TECHNIQUE: 2 views of the chest were obtained. FINDINGS: No significant abnormality is noted involving the heart, lungs, mediastinum, bony thorax or soft tissues. XR/XR chest 2V IMPRESSION: Unremarkable chest examination. Electronically signed by: Luis Bello MD 08/26/2024 04:27 PM EDT RP
[2024-08-26 15:35] VITALS: BP 125/77; PULSE 97; RESP 16; TEMP 37.1; O2SAT 98; BMI 29.0
--- NOTE | 2024-08-26 15:35 | ED_ITS ---
HPI - General Adult General Chief complaint: Upper Respiratory Symptoms Stated complaint: coughing,wheezing h/o asthma Time Seen by Provider: 08/26/24 16:49 Source: patient Mode of arrival: ambulatory Limitations: no limitations History of Present Illness ED Provider: HPI narrative: Patient's coughing for last 1 week with mucopurulent phlegm no fever does have history of asthma using inhaler without much relief COVID flu RSV tested right to my evaluation was negative Related Data Home Medications ?Medication ?Instructions ?Recorded ?Confirmed meclizine 25 mg tablet 25 mg PO DAILY PRN 12/11/23 12/11/23 Previous Rx's ?Medication ?Instructions ?Recorded ibuprofen 600 mg tablet 600 mg PO Q8H PRN fever or pain 11/24/23 #20 tabs azithromycin 250 mg tablet 250 mg PO DAILY 5 days #6 tabs 12/11/23 benzonatate 100 mg capsule 100 mg PO BID PRN cough 5 days #10 12/11/23 caps prednisone 10 mg tablet 10 mg PO DIRECTED 8 days #20 12/11/23 tabs Ventolin HFA 90 mcg/actuation 2 puff inhalation Q6H PRN 06/07/24 aerosol inhaler (albuterol sulfate) shortness of breath or wheezing 30 days #18 grams cetirizine 10 mg tablet (All Day 10 mg PO DAILY PRN allergy 06/14/24 Allergy (cetirizine)) symptoms 90 days #90 tabs budesonide-formoterol HFA 80 1 inh inhalation BID 30 days #10.2 08/20/24 mcg-4.5 mcg/actuation aerosol grams inhaler cefuroxime axetil 500 mg tablet 500 mg PO BID 7 days #14 tabs 08/26/24 prednisone 20 mg tablet 40 mg (2 x 20 mg) PO DAILY #10 tabs 08/26/24 Allergies Allergy/AdvReac Type Severity Reaction Status Date / Time No Known Allergies Allergy Verified 08/26/24 15:37 Review of Systems Review of Systems: Yes all other systems are reviewed and are negative PMFSH Past Medical History Medical History Incomplete immunization status Tension headache Allergic rhinitis Hypovitaminosis D Mild persistent asthma Pure hypercholesterolemia Surgical History No pertinent past surgical history Family History Family History Father Substance use disorder Diabetes Mother Gout Maternal Grandmother No problems noted. Paternal Grandmother Diabetes Maternal Aunt Diabetes Brother In good health Brother In good health Sister In good health Sister In good health Sister In good health Family/Other FH: mental illness Paternal Uncle Substance use disorder Family/Other Breast cancer Social History Social History Housing: Apartment Alcohol intake: never Patient Tobacco Use Status: Never used Tobacco e-Cigarette/Vaping Use: Never Used Second Hand Smoke Exposure: No Advance Directives: No Advance Directives Information Provided: No service: No Current occupational status: unemployed Gender identity: Female Cognitive needs: No Hearing needs: No Vision needs: No Physical Exam ED Vital Signs: BMI result Body Mass Index 29.0 Appearance: Alert. Oriented X3. No acute distress. ENT: Pharynx normal. Oral Mucosa moist Neck: Normal inspection. Neck supple. CVS: Normal heart rate and rhythm. Pulses normal. Respiratory: No respiratory distress. Equal air entry bilateral, no wheezing/rales/rhonchi frequent cough Abdomen: Soft and nontender. Bowel sounds are present, no mass palpable, no CVA tenderness Skin: Skin warm and dry. Normal skin color. Normal skin turgor. Extremities: No lower extremity edema. No calf tenderness Neuro: Oriented X 3. No motor deficit. Course Course Course Narrative: This is a rapid medical exam performed by Gio Amaro NP: Additional HPI, ROS, PE not included below will be deferred to primary provider. Patient is a 29-year-old female with history of asthma presenting with complaint of cough and shortness of breath x 8 days. Denies known sick contacts. Denies fevers. Plan: viral panel, cxr Medications Administered Discontinued Medications Generic Name Dose Route Start Last Admin Trade Name Freq PRN Reason Stop Dose Admin Cefuroxime Axetil 500 mg 08/26/24 16:58 08/26/24 17:14 Cefuroxime Axetil 500 Mg Tablet PO 08/26/24 16:59 500 mg ONCE ONE Administration Prednisone 40 mg 08/26/24 16:58 08/26/24 17:15 Prednisone 20 Mg Tablet PO 08/26/24 16:59 40 mg ONCE ONE Administration Medical Decision Making Medical Decision Making MDM Narrative: Patient has acute bronchitis will prescribe cefuroxime and prednisone Lab Data MDM Lab Attestation statement: I reviewed the patient's lab results. Labs: Lab Results 08/26/24 Range/Units 15:50 Influenza Type A (PCR) NEGATIVE (Negative) Influenza Type B (PCR) NEGATIVE (Negative) RSV RNA Qual (PCR) NEGATIVE (Negative) SARS-CoV-2 RNA (RT-PCR) NEGATIVE (Negative) Independent Interpretation I performed an independent interpretation of an: Plain X-Ray Interpretation: Negative Discharge Plan Discharge Clinical Impression: Bronchitis Patient Disposition: Home, Self-Care Instructions: Acute Bronchitis (ED) Additional Instructions: Continue your inhaler Antibiotics prednisone as advised Prescriptions: New prednisone 20 mg tablet 40 mg PO DAILY Qty: 10 0RF cefuroxime axetil 500 mg tablet 500 mg PO BID 7 Days Qty: 14 0RF No Action albuterol sulfate [Ventolin HFA] 90 mcg/actuation HFA aerosol inhaler 2 puff inhalation Q6H PRN (Reason: shortness of breath or wheezing) 30 Days Qty: 18 1RF cetirizine [All Day Allergy (cetirizine)] 10 mg tablet 10 mg PO DAILY PRN (Reason: allergy symptoms) 90 Days Qty: 90 0RF budesonide-formoterol 80-4.5 mcg/actuation HFA aerosol inhaler 1 inh inhalation BID 30 Days Qty: 10.2 2RF ibuprofen 600 mg tablet 600 mg PO Q8H PRN (Reason: fever or pain) Qty: 20 0RF meclizine 25 mg tablet 25 mg PO DAILY PRN benzonatate 100 mg capsule 100 mg PO BID PRN (Reason: cough) 5 Days Qty: 10 0RF azithromycin 250 mg tablet 250 mg PO DAILY 5 Days Qty: 6 0RF Rx Instructions: Take 2 tabs the first day, then 1 tab the next 4 days prednisone 10 mg tablet 10 mg PO DIRECTED 8 Days Qty: 20 0RF Rx Instructions: Take 4 tabs for 2 days, then 3 tabs for 2 days, then 2 tabs for 2 days, then 1 tab for 2 days Interventions: ED Discharge Assessment Last Done: 08/26/24 17:18 Discharge Date/Time: 08/26/24 17:20 Print Language: Occitan
[2024-08-26 16:31] LABS: Influenza A PCR NEGATIVE (Negative); Influenza B PCR NEGATIVE (Negative); Resp Syncy Virus RNA Qual PCR NEGATIVE (Negative)
[2024-08-26 16:32] LABS: SARS COV2 PCR INHOUSE NEGATIVE (Negative)
[2024-08-26] MEDS: cefuroxime axetiL 500 MG TABLET PO (17:14)
[2024-08-26] MEDS: predniSONE 20 MG TABLET 40 MG PO (17:15)
[2024-08-26 17:18] VITALS: BP 125/77; PULSE 97; RESP 16; TEMP 37.1; O2SAT 98
--- OUTSIDE RECORDS SUMMARY | 2024-08-26 18:13 | XMS_ITS | Clinical Summary ---
Author Organization [employer] Address [address] [place] [address] [address] [place] [address] Care Team Providers Care Gaming Commissioner Name Role Phone Unavailable Primary Care Provider Unavailabl e Allergies No known active allergies Medications albuterol (ProAir HFA) 108 (90 Base) MCG/ACT inhaler TAKE 2 PUFFS BY MOUTH EVERY 4 TO 6 HOURS NEEDED FOR WHEEZE FOR SHORTNESS OF BREATH Active meclizine (Antivert) 25 MG tablet TAKE 1 TABLET BY MOUTH EVERY DAY NEEDED FOR DIZZINESS Active montelukast (Singulair) 10 MG tablet Take 1 tablet by mouth in the morning. Active naproxen (Naprosyn) 500 MG tablet Take 1 tablet by mouth 2 times daily. 5 Active Active Problems No known active problems Social History Tobacco Use Types Packs/Day Years Used Date Smoking Tobacco: Never Tobacco Cessation:Counseling Given: Not Answered Comments Unknown Sex and Gender Information Value Date Recorded Sex Assigned at Female 03/11/2022 10:24 AM EDT Legal Sex Female 10:24 AM EDT Gender Identity Female 03/11/2022 10:24 AM EDT Sexual Orientation Straight 03/11/2022 10 :24 AM EDT Plan of Treatment Health Maintenance Due Date Last Done Comments Depression Screening 1997 HIV Screening 1997 SDOH Screening 1997 Alcohol/Substance Use Screening 2009 Tobacco Screening 2009 Family Planning (PISQ) 02/01/2012 Hepatitis C Screening 2015 DTaP/Tdap/Td Vaccines (1 - Tdap) 02/01/2016 Hepatitis B Vaccines (1 of 3 - 19+ 3-dose series) 02/01/2016 Pneumococcal Vaccine: Pediatrics (0 to 5 Years) and At-Risk Patients (6 to 49) Years) (1 of 2 - PCV) 02/01/2016 Pap Smear 2018 COVID-19 Vaccine (3 - 2023-2 5 season) 2024 11/08/2020, 10/11/2020 Influenza Vaccine (#1) 2024 04/25/2017 Zoster Vaccines (1 of 2) 2047 RSV Patients and Patients Aged 60 years or older (1 - 1-dose 75+ series) 02/01/2072 Meningococcal Vaccine Completed 12/21/2014 HIB Vaccines Aged Out No longer eligi ble based on patient's age to complete this topic HPV Vaccines Aged Out No longer eligi ble based on patient's age to complete this topic Hepatitis A Vaccines Aged Out No long er eligible based on patient's age to complete this topic IPV Vaccines Aged Out No longer eligi ble based on patient's age to complete this topic RSV under 20 months Aged Out No longe r eligible based on patient's age to complete this topic Rotavirus Vaccines Aged Out No longer eligible based on patient's age to complete this topic Insurance [facility] [place] [id number] [place] [id number]
== END 2024-08-26 17:20 | disposition home or self-care (01) ==
PROVIDERS: Registered Nurse Emergency; Emergency Provider Internal Medicine; PCP Internal Medicine
DX: J20.9 Acute bronchitis, unspecified (principal); Z03.818 Encounter for observation for suspected exposure to other biological agents ruled out; R05.9 Cough, unspecified
CPT/HCPCS: 0241U; 71046; 99283

== ENCOUNTER → 2024-08-26 15:36 | Outpatient (BNV) | payer OTHER, SELFPAY | PROVIDERS: Emergency Provider Internal Medicine; PCP Internal Medicine; Visit Provider Radiology Diagnostic Radiology | DX: R05.9 Cough, unspecified (principal) | CPT/HCPCS: 71046 ==